=== PATIENT | male | born 1990 ===

== ENCOUNTER 2022-05-26 23:17 | Emergency (ER) ==
[~2022-05-26] VITALS: Ht 165.1 cm; Wt 72.7 kg
[2022-05-26] MEDS ORDERED: NAPR-885 PO (23:25)
[2022-05-26] MEDS ORDERED: NAPR-849 PO (23:26)
== END 2022-05-27 04:13 | disposition left against medical advice (07) ==
LOC: M ED 23:17
DX: Z53.21 Procedure and treatment not carried out due to patient leaving prior to being seen by health care provider (principal)